=== PATIENT | male | born 1960 | race Caucasian/White ===

== ENCOUNTER 2024-11-20 14:52 | Inpatient (IN) | payer OTHER, MEDICARE ==
[2024-11-20] VITALS (17 sets, daily range): BP systolic 127–241; BP diastolic 69–119
[~2024-11-20] VITALS: Ht 182.9 cm; Wt 102.2 kg
--- NOTE | 2024-11-20 14:55 | NUR ---
PT BROUGHT IN TO ER ROOM 6 VIA EMS
[2024-11-20] MEDS ORDERED: METOCLOPRAMIDE HCL 10 MG/2 ML SDV IV ONE (15:00)
[2024-11-20] MEDS ORDERED: LACTATED RINGER'S 1,000 ML IV ONE ×2 (15:00→15:55)
[2024-11-20] MEDS ORDERED: Pantoprazole Sodium 40 MG VIAL (Protonix) IV ONE (15:05)
[2024-11-20] MEDS ORDERED: MIDAZOLAM HCL 2 MG/2 ML VIAL IV ONE (15:05)
[2024-11-20] MEDS ORDERED: hydrALAZINE HCL 20 MG/ML VIAL(1 ML) IV ONE (15:05)
[2024-11-20 15:22] LABS: BASO% 0.4 % (0-3); EOS% 0.2 % (0-8); HEMATOCRIT 52.6 % (39.0-50.0); HEMOGLOBIN 17.6 g/dl (14.0-18.0); IMMATURE GRANULOCYTES 0.6 % (0.0-5.0); LYMPH% 12.4 % (15-41); MEAN CELL VOLUME 84.6 fL CALC (80.0-100.0); MEAN CORPUSCULAR HGB 28.3 pG CALC (26.0-32.0); MEAN CORPUSCULAR HGB CONC 33.5 g/dL CAL (32.0-36.0); MONO% 4.8 % (2-13); NEUT# 6.84 thou/uL (1.82-7.42); NEUT% 81.6 % (42-76); RED BLOOD COUNT 6.22 mill/uL (4.70-6.10); RED CELL DISTRI WIDTH 12.9 % (11.5-15.5)
--- NOTE | 2024-11-20 15:40 | NUR ---
PT MEDICATED PER EMAR, PT RESTING IN BED, CALL LIGHT WITHIN REACH, UPDATED ON THE PLAN OF CARE, DENIES ANY NEEDS AT THIS TIME
[2024-11-20] MEDS ORDERED: CYCLOBENZAPRINE10 MG PO (16:01)
[2024-11-20] MEDS ORDERED: HYDROCHLOROT12.5 M1 PO (16:02)
[2024-11-20] MEDS ORDERED: OMEPRAZOLE20 MG PO (16:03)
[2024-11-20] MEDS ORDERED: VALSARTAN160 MG PO (16:04)
[2024-11-20] MEDS ORDERED: GABAPENTIN100 MG PO (16:04)
[2024-11-20] MEDS ORDERED: PROMETHAZINE HCL 25 MG/ML AMP IV ONE (16:05)
[2024-11-20 16:06] LABS: ALBUMIN 4.6 g/dL (3.2-5.0); ALKALINE PHOSPHATASE 402 u/l (38-126); ANION GAP 21 (6-22 (CALC)); BILIRUBIN, TOTAL 2.1 mg/dL (0.2-1.3); BUN 12 mg/dL (8-23); BUN/CREATININE RATIO 15 (12-20 (CALC)); CARBON DIOXIDE 19 mmol/l (22-30); CHLORIDE 104 mmol/l (95-108); CREATININE 0.8 mg/dL (0.7-1.3); ESTIMATED GFR 98 ML/MIN (>=90 (CALC)); POTASSIUM 4.2 mmol/l (3.5-5.1); SGOT/AST 86 u/l (19-48); SODIUM 140 mmol/l (137-146); TOTAL PROTEIN 7.6 g/dL (6.3-8.2)
--- NOTE | 2024-11-20 16:40 | NUR ---
PT MEDICATED PER EMAR, PT RESTING WITH LIGHTS OFF, PT SPOUSE AT BEDSIDE
[2024-11-20] MEDS ORDERED: FAMOTIDINE 10MG/ML 2ML SDV IV ONE (18:10)
[2024-11-20] MEDS ORDERED: INSULIN REGULAR (HUMAN) 100 UNIT/ML INJ IV ONE (18:10)
[2024-11-20 18:31] LABS: URINE BILIRUBIN - DIPSTICK Negative (NEGATIVE); URINE BLOOD DIPSTICK Trace-intact (NEGATIVE); URINE COLOR Yellow; URINE GLUCOSE - DIPSTICK >=1000 mg/dL (NEGATIVE); URINE KETONE 80 mg/dL (NEGATIVE); URINE LEUK ESTERASE Negative (NEGATIVE); URINE NITRITE - DIPSTICK Negative (Negative); URINE PH 5.5 (4.5-8.0); URINE PROTEIN - DIPSTICK >=300 mg/dL (NEG-TRACE); URINE SPECIFIC GRAVITY 1.015; URINE UROBILINOGEN - DIPSTICK 0.2 E.U./dL (0.2)
[2024-11-20 18:36] LABS: URINE WBC 0-2 WBC/hpf (0-5)
[2024-11-20] MEDS ORDERED: MAGNESIUM HYDROXIDE 30 ML UDC PO PRN (19:00)
[2024-11-20] MEDS ORDERED: SODIUM CHLORIDE 0.9% 1,000 ML IV PRN (19:00)
[2024-11-20] MEDS ORDERED: Zaleplon 5 MG/CAP PO PRN (19:00)
[2024-11-20] MEDS ORDERED: ACETAMINOPHEN 325 MG/TAB PO PRN (19:00)
--- NOTE | 2024-11-20 19:00 | NUR ---
PT REPORT RECEIVED FROM SHIVAM RN, PT CURRENTLY SITTING ON THE EDGE OF THE BED WITH MILD DISCOMFORT. PROTONIX INFUSSION RUNNING AT 10MLS/HR AT THIS TIME. PT UPDATED ON CURRENT WAIT TIME AND PLAN OF CARE. PT VOICES UNDERSTANDING. CALL LIGHT WITHIN REACH.
[2024-11-20] MEDS ORDERED: ONDANSETRON HCl 4 MG/2 ML SDV IV PRN (19:05)
[2024-11-20] MEDS ORDERED: LABETALOL HCL 20 MG/ 4 ML CARTRG IV ONE (19:20)
[2024-11-20] MEDS ORDERED: ALPRAZolam 0.5 MG/TAB PO ONE (19:20)
[2024-11-20] MEDS ORDERED: ONDANSETRON HCl 4 MG/2 ML SDV IV STA (19:23)
--- NOTE | 2024-11-20 20:03 | NUR ---
ATTEMPTED TO GIVE PATIENT REPORT, NURSE NOT AVAILABLE.
--- NOTE | 2024-11-20 20:18 | NUR ---
ATTEMPTED TO CALL REPORT, NO ANSWER AT THIS TIME.
--- NOTE | 2024-11-20 20:50 | NUR ---
ATTEMPTED TO CALL REPORT. NURSE UNAVAILABLE. NONPROFIT FUNDRAISER NOTIFIED.
[2024-11-20] MEDS ORDERED: INSULIN LISPRO 100 UNITS/ML ML SC SCH (21:00)
[2024-11-20] MEDS ORDERED: INSULIN GLARGINE 100 UNITS/ML SC SCH (21:00)
--- NOTE | 2024-11-20 21:43 | NUR ---
PT REPORT GIVEN TO KEARA LARKIN
--- NOTE | 2024-11-20 22:39 | NUR ---
PATIENT TRASNPORTED TO MED SURG BY Cody GONZALEZ RN.
--- NOTE | 2024-11-20 22:41 | NUR ---
64 yr old white male admitted to [facility] rm 267 per w/c from er. transferred self to bed. bed weight obtained. requests water. instructed pt d/t n/v he would be npo. cardiac catheterization technician shows sinus rhythm pacs pvcs. history obtained per pt & er record. oriented to room. ivf began as ordered.
--- NOTE | 2024-11-20 22:57 | NUR ---
vital signs bp- 166/86 p- 81 temp-97.0 o2- 99 resp- 18 weight-97.9 kg
[2024-11-21] VITALS (9 sets, daily range): BP systolic 100–194; BP diastolic 40–80
--- NOTE | 2024-11-21 00:01 | NUR ---
telemetry shows sinus rhythm hr 66.
--- NOTE | 2024-11-21 04:00 | NUR ---
telemetry shows sinus bhavya hr 54.
--- NOTE | 2024-11-21 07:20 | NUR ---
PT IS LAYING ON LEFT SIDE WITH EYES CLOSED. PT ARROUSES EASILY TO VERBAL STIMULI. ALERT AND ORIENTED X3. RESP EVEN AND UNLABORED ON ROOM AIR. NORMAL S1,S2 HEART RYTHM. NS RUNNING AT 100 IN LAC, PROTONIX RUNNING ASWELL. NO S/S OF DISTRESS AT THIS TIME. STRONG PEDAL AND RADIAL PULSES. ACTIVE BOWEL SOUNDS, SOFT ABD. BED IN THE LOWEST POSITION AND CALL LGHT WITHIN REACH.
[2024-11-21] MEDS ORDERED: hydrALAZINE HCL 20 MG/ML VIAL(1 ML) IV PRN (07:45)
[2024-11-21 08:07] LABS: BASO% 0.2 % (0-3); IMMATURE GRANULOCYTES 0.3 % (0.0-5.0); LYMPH% 13.7 % (15-41); MEAN CELL VOLUME 84.7 fL CALC (80.0-100.0); MEAN CORPUSCULAR HGB 28.6 pG CALC (26.0-32.0); MEAN CORPUSCULAR HGB CONC 33.7 g/dL CAL (32.0-36.0); MONO% 6.4 % (2-13); NEUT# 4.81 thou/uL (1.82-7.42); NEUT% 79.4 % (42-76); RED BLOOD COUNT 5.11 mill/uL (4.70-6.10); RED CELL DISTRI WIDTH 13.3 % (11.5-15.5)
[2024-11-21 08:24] LABS: BILIRUBIN, TOTAL 1.6 mg/dL (0.2-1.3); CREATININE 0.7 mg/dL (0.7-1.3); MAGNESIUM 1.7 mg/dL (1.6-2.3)
[2024-11-21 08:31] LABS: ALBUMIN 3.4 g/dL (3.2-5.0); POTASSIUM 3.3 mmol/l (3.5-5.1); TOTAL PROTEIN 5.9 g/dL (6.3-8.2)
[2024-11-21 09:11] LABS: HEMATOCRIT 43.3 % (39.0-50.0); HEMOGLOBIN 14.6 g/dl (14.0-18.0)
[2024-11-21] MEDS ORDERED: LOSARTAN Potassium 50 MG/TAB PO SCH (10:30)
[2024-11-21] MEDS ORDERED: ALPRAZolam 0.25 MG PO PRN (11:10)
[2024-11-21] MEDS ORDERED: INSULIN LISPRO 100 UNITS/ML ML SC SCH (12:00)
--- NOTE | 2024-11-21 12:00 | NUR ---
PT IS LAYING FLAT IN BED ON LEFT SIDE WITH EYES CLOSED AND LIGHT OFF. PT ARROUSES EASILY TO VERBAL STIMULI. NS IN PLACE. RESP EVEN AND UNLABORED. NO S/S OF DISTRESS AT THIS TIME. BED IN THE LOWEST POSITION AND CALL LIGHT WITHIN REACH.
[2024-11-21] MEDS ORDERED: GADOPICLENOL (VUEWAY) 0.5 MM/ML 3.75MM/7.5ML VIAL IV ONE (12:55)
[2024-11-21] MEDS ORDERED: PANTOPRAZOLE Sodium 80 MG in SODIUM CHLORIDE 0.9% 80 ML IV SCH (15:00)
--- NOTE | 2024-11-21 16:00 | NUR ---
PT IS LAYING FLAT IN BED WITH LIGHTS OFF. AXO X3. PT HAS IV FLUIDS AND PROTONIX RUNNING AT THIS TIME. PT DECLINES ANY NAUSEA AT THIS TIME. RESP EVEN AND UNLABORED ON ROOM AIR. NO S/S OF DISTRESS AT THIS TIME. BED IN THE LOWEST POSITION AND CALL LIGHT WITHIN REACH.
--- NOTE | 2024-11-21 20:00 | NUR ---
awake. no acute distress. no c/o n/v. 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 ivf infusing well. voids per urinal. fall precautions cont.
--- NOTE | 2024-11-21 20:40 | NUR ---
sonata 5mg po given per request for sleep.
--- NOTE | 2024-11-21 22:50 | NUR ---
awake. xanax 0.25mg po given.
--- NOTE | 2024-11-22 00:01 | NUR ---
eyes closed. not awakened for vitals. npo in prep for scope in am.
--- NOTE | 2024-11-22 04:23 | NUR ---
nurse monitoring showS sInus rhythm hr 65
[2024-11-22 04:50] VITALS: BP 166/77
[2024-11-22 05:54] VITALS: BP 189/77
[2024-11-22 06:22] LABS: BASO% 0.2 % (0-3); EOS% 0.2 % (0-8); HEMOGLOBIN 15.2 g/dl (14.0-18.0); IMMATURE GRANULOCYTES 0.2 % (0.0-5.0); LYMPH% 15.7 % (15-41); MEAN CELL VOLUME 85.9 fL CALC (80.0-100.0); MEAN CORPUSCULAR HGB CONC 33.8 g/dL CAL (32.0-36.0); MONO% 6.3 % (2-13); NEUT# 4.89 thou/uL (1.82-7.42); NEUT% 77.4 % (42-76); RED BLOOD COUNT 5.24 mill/uL (4.70-6.10); RED CELL DISTRI WIDTH 13.6 % (11.5-15.5)
[2024-11-22 06:29] LABS: ALBUMIN 3.1 g/dL (3.2-5.0); BILIRUBIN, TOTAL 1.5 mg/dL (0.2-1.3); CREATININE 0.7 mg/dL (0.7-1.3); MAGNESIUM 1.8 mg/dL (1.6-2.3); POTASSIUM 3.2 mmol/l (3.5-5.1); TOTAL PROTEIN 5.6 g/dL (6.3-8.2)
[2024-11-22 07:10] VITALS: BP 189/77
[2024-11-22 07:15] VITALS: BP 206/89
--- NOTE | 2024-11-22 07:21 | NUR ---
RECHECKED PT'S B[, , PT IS AOX4, RESPIRATIONS ARE EVEN AND UNLABORED ON ROOM AIR, LUNGS ARE CLEAR AT BILATERAL BASES, DIM AT BULATERAL UPPER LOBES, BOWEL SOUNDS ARE HYPOACTIVE AT THIS TIME, PEDAL PULSES ARE STRONG, PT DENIES PAIN AT THIS TIME.
--- NOTE | 2024-11-22 07:40 | NUR ---
PRN HYDRALAZING GIVEN FOR BP OF 206/89.
[2024-11-22] MEDS ORDERED: MIDAZOLAM HCL 2 MG/2 ML VIAL IV ONE (07:59)
[2024-11-22] MEDS ORDERED: GLYCOPYRROLATE 0.2 MG/ML IV ONE (07:59)
[2024-11-22] MEDS ORDERED: LIDOCAINE HCL 2% 2ML SDV IV ONE (07:59)
[2024-11-22] MEDS ORDERED: PROPOFOL 200 MG/20 ML VIAL IV ONE (07:59)
[2024-11-22 08:34] VITALS: BP 187/87
--- NOTE | 2024-11-22 08:38 | NUR ---
PT REPORTS HAVING A LEFT HIP REPLACEMENT, STATES HE HAS ACARD FOR IT AT HOME. ASKED PT TO HAVE SOMEONE BRING IT IN FOR HIM. PT STATES HE'S HAD 2 MRI'S BEFORE.
--- NOTE | 2024-11-22 09:06 | NUR ---
PT OFF THE FLOOR VIA STAFF TRANSPORT TO [facility].
[2024-11-22] MEDS ORDERED: SODIUM CHLORIDE 0.9% 1,000 ML IV ONE (09:31)
[2024-11-22] MEDS ORDERED: ONDANSETRON HCl 4 MG/2 ML SDV ONE (10:08)
[2024-11-22 10:48] VITALS: BP 141/78
[2024-11-22] MEDS ORDERED: PROTONIX40 M2 PO (10:48)
--- NOTE | 2024-11-22 10:57 | NUR ---
PT REFUSED TO HAVE BLOOD SUGAR CHECKED, ATTEMPTED TO OBSTAIN PT'S BP BUT PT UNWILLING TO MOVE FROM SIDE DISPITE EXPLAINING IT WILL NOT PROVIDE AN ACCURATE BP.
--- NOTE | 2024-11-22 11:00 | NUR ---
PT REFUSING BP.
--- NOTE | 2024-11-22 11:23 | NUR ---
REVIEWED DISCHARGE INSTRUCTIONS WITH PT AND SPOUSE, REMOVED IV, REMOVED TELE BOX AND PLACED IT IN RETURN BIN AT NURSES STATION.
--- NOTE | 2024-11-23 11:44 | NUR ---
Discharge follow up call completed 11/23/24. Patient states he feels much better today. Patient has prescribed medication to take as needed. Patient followed up with his PCP today and will be scheduling additional testing soon. No needs or concerns verbalized by patient at this time. He appreciates the follow up call.
== END 2024-11-22 11:33 | disposition home or self-care (01) | DRG 392 ==
LOC: ED 14:52 → ED-I 15:58 → ED 15:58 → ED-I 16:54 → ED 19:02 → MS2 19:03
PROVIDERS: Nurse Practitioner; Nurse Practitioner Family; ADMIT Internal Medicine; ATTEND Internal Medicine
PROC: 0DB48ZX Excision of Esophagogastric Junction, Via Natural or Artificial Opening Endoscopic, Diagnostic (ICD-10-PCS; principal; 2024-11-22)
PROC: 0DB68ZX Excision of Stomach, Via Natural or Artificial Opening Endoscopic, Diagnostic (ICD-10-PCS; 2024-11-22)
DX: K29.70 Gastritis, unspecified, without bleeding (principal); K80.20 Calculus of gallbladder without cholecystitis without obstruction; E80.4 Gilbert syndrome; K57.30 Diverticulosis of large intestine without perforation or abscess without bleeding; E11.65 Type 2 diabetes mellitus with hyperglycemia; E86.0 Dehydration; K86.9 Disease of pancreas, unspecified; I10 Essential (primary) hypertension; I16.0 Hypertensive urgency; F41.9 Anxiety disorder, unspecified; E78.5 Hyperlipidemia, unspecified; N43.3 Hydrocele, unspecified; K21.9 Gastro-esophageal reflux disease without esophagitis; Z87.11 Personal history of peptic ulcer disease; Z79.899 Other long term (current) drug therapy; Z79.84 Long term (current) use of oral hypoglycemic drugs
CPT/HCPCS: J0360; J1596; J1815; J2405; J2470; J2550; J2765; Q9967